=== PATIENT | male | born 1995 | race African-American/Black ===

== ENCOUNTER 2016-06-09 09:51 | Emergency (ER) | payer SELFPAY ==
[2016-06-09] MEDS ORDERED: TETRACAINE HCL 0.5% OPH SOLN 2 ML OS ONE (10:01)
--- NOTE | 2016-06-09 10:01 | ER Document Report ---
ED Medical Screen (RME) - General Stated Complaint: EYE PAIN Time seen by provider: 09:59 Mode of Arrival: Ambulatory Information source: Patient Notes: 20 yo male presents to ed for left eye pain with bluurry vison. for 2 days - HPI Onset: Other - 2days Onset/Duration: Gradual Quality of pain: Burning Severity: Severe Pain Level: 5 Associated Symptoms: Other - eye pain Exacerbated by: Denies Relieved by: Denies Similar symptoms previously: No Recently seen / treated by doctor: No - Related Data Smoking: Cigarettes Frequency of alcohol use: None Drug Abuse: None Allergies/Adverse Reactions: No Known Allergies Allergy (Unverified 06/09/16 09:57)
--- NOTE | 2016-06-09 11:25 | ER Document Report ---
ED General - General Chief Complaint: Eye Pain Stated Complaint: EYE PAIN Time seen by provider: 10:50 Mode of Arrival: Ambulatory Information source: Patient Notes: 20-year-old male woke up 2 days ago with redness to his left eye and yellow drainage. He also reports that he has intermittent blurry vision until he blinks and clears inside and it seems back to normal. He reports no problems with the right eye. He reports a prior history of symptoms like this. He denies any kind of work might produce foreign bodies has no foreign body sensation in his eye and states he doesn't wear glasses or contact lenses Physical Exam: General: Alert, appears well. HEENT: Normocephalic. Atraumatic. PERRLA. Extraocular movements intact. Discs sharp with no papilledema. Conjunctival injection noted diffusely to the left eye with soft tissue swelling to the upper and lower lids and yellowish drainage. Ocular pressure 19. No foreign body seen with lid eversion. No corneal abrasion identified with fluorescein staining. Oropharynx clear. Neck: Supple. Non-tender. Respiratory: No respiratory distress. Clear and equal breath sounds bilaterally. Cardiovascular: Regular rate and rhythm. Abdominal: Normal Inspection. Soft, non-tender. No distension. Normal Bowel Sounds. Back: Non-tender. No deformity or step off. Extremities: No gross deformities moves all extremities well Neurological: Speech clear mentation normal Psychological: Normal affect. Normal Mood. Skin: Warm. Dry. Normal color. TRAVEL OUTSIDE OF THE [place] IN LAST 30 DAYS: No - Related Data Allergies/Adverse Reactions: No Known Allergies Allergy (Unverified 06/09/16 09:57) Past Medical History - General Information source: Patient - Social History Smoking Status: Current Every Day Smoker Chew tobacco use (# tins/day): No Frequency of alcohol use: None Drug Abuse: None Family History: DM, Hypertension Patient has suicidal ideation: No Patient has homicidal ideation: No Review of Systems - Review of Systems Constitutional: denies: Chills, Fever EENT: See HPI Cardiovascular: denies: Chest pain Respiratory: denies: Short of breath Gastrointestinal: denies: Abdominal pain, Nausea, Vomiting Genitourinary: denies: Burning, Dysuria Musculoskeletal: denies: Back pain Hematologic/Lymphatic: denies: Swollen glands Neurological/Psychological: denies: Weakness, Numbness Physical Exam - Vital signs Vitals: Temp Pulse Resp BP Pulse Ox 98.1 F 87 20 142/87 H 96 06/09/16 09:57 06/09/16 09:57 06/09/16 09:57 06/09/16 09:57 06/09/16 09:57 - HEENT Visual acuity- Right eye: 20/40 Visual acuity- Left eye: 20/50 Visual acuity- Both eyes: 20/50 Corrective lenses worn: No Course - Re-evaluation Re-evalutation: 06/09/16 11:21 Examination consistent with conjunctivitis. Patient replacement antibiotic drops with ophthalmology follow-up as outpatient - Vital Signs Vital signs: Temp Pulse Resp BP Pulse Ox 98.1 F 87 20 142/87 H 96 06/09/16 09:57 06/09/16 09:57 06/09/16 09:57 06/09/16 09:57 06/09/16 09:57 Discharge - Discharge Clinical Impression: Conjunctivitis Qualifiers: Conjunctivitis type: acute Acute conjunctivitis type: unspecified Laterality: left Qualified Code(s): H10.32 - Unspecified acute conjunctivitis, left eye Condition: Stable Disposition: HOME, SELF-CARE Additional Instructions: Conjunctivitis You have an infection in your eye, commonly known as "pink eye." Conjunctivitis causes redness, mild discomfort, itching, and mattering on the eyelids. It is very contagious, so you must be careful to wash your hands after touching your face so you don't pass the infection on to others. Conjunctivitis is caused by both viruses and bacteria. It usually responds quickly to treatment with antibiotic drops. These should be placed in the eye as prescribed (usually every three to four hours while you're awake). If you wear contact lenses, don't put them in your eyes until the infection is cleared and you are no longer using the drops (unless your doctor advises you otherwise). Should you develop increasing eye pain, severe swelling, decreased vision, or fail to improve as expected, please return for re-examination. Prescriptions: Tobramycin Sulf/Dexamethasone [Tobradex Eye Drops] 1 drop LFT_EYE QID #5 ml Referrals: IVANA GALLAGHER MD [ACTIVE STAFF] - 06/19/16 (follow up conjuctivitis)
[2016-06-09 11:41] VITALS: BP 139/79
== END 2016-06-09 11:45 | disposition home or self-care (01) ==
LOC: ER 09:51
DX: H10.32 Unspecified acute conjunctivitis, left eye (principal); F17.200 Nicotine dependence, unspecified, uncomplicated
CPT/HCPCS: 99283

== ENCOUNTER 2018-10-02 03:09 | Emergency (ER) | payer SELFPAY ==
[2018-10-02] MEDS ORDERED: PROMETHAZINE HCL INJ 25 MG/1 ML VIAL IV ONE (03:53)
[2018-10-02] MEDS ORDERED: MORPHINE SULFATE 10 MG/ML INJ IV ONE (03:54)
[2018-10-02] MEDS ORDERED: PROMETHAZINE HCL INJ 25 MG/1 ML VIAL ONE (03:57)
[2018-10-02] MEDS ORDERED: MORPHINE SULFATE 10 MG/ML INJ ONE (03:57)
--- NOTE | 2018-10-02 06:15 | RADIOLOGY REPORT (SQ) ---
EXAM DESCRIPTION: CT ABDOMEN WITHOUT IV CONTRAST COMPLETED DATE/TME: 10/02/2018 03:58 CLINICAL HISTORY: RLQ pain COMPARISON: None Available. TECHNIQUE: CT of the abdomen and pelvis without IV contrast. Evaluation of the solid organs and vasculature is suboptimal due to lack of IV contrast. DLP: 969.29 mGy-cm FINDINGS: Lung Bases: The visualized lung bases are clear. Bones: No destructive bone lesions identified. Abdomen: Liver: The liver has normal size and density. Gallbladder: No calcified gallstones. Spleen, Pancreas, and Adrenal Glands: The spleen, pancreas, and adrenal glands are unremarkable. Kidneys: There is a 0.3 cm obstructing calculus in the mid right ureter producing moderate right hydronephrosis. Right perinephric fat No left-sided hydronephrosis. Vasculature: The aorta and IVC have normal caliber and position. Stomach: The stomach and duodenum have normal course. Other: No free intraperitoneal air. No free fluid or lymphadenopathy. Pelvis: Bladder: Urinary bladder is unremarkable. Bowel: No dilated loops of large or small bowel. Mild prominence of the colon wall may be related to under distention. Appendix: Normal appendix. Pelvis: Prostate is not enlarged. IMPRESSION: 1. There is a 0.3 cm obstructing calculus in the mid right ureter producing moderate right hydronephrosis. This exam was performed according to our departmental dose-optimization program, which includes automated exposure control, adjustment of the mA and/or kV according to patient size and/or use of iterative reconstruction technique.
[2018-10-02] MEDS ORDERED: NORMAL SALINE 1000 ML 1,000 ML IV ONE (06:17)
[2018-10-02 06:18] LABS: ALANINE AMINOTRANSFERASE 32 U/L (21-72); ALBUMIN 3.9 g/dL (3.5-5.0); ALKALINE PHOSPHATASE 85 U/L (38-126); ANION GAP 12 (5-19); ASPARTATE AMINO TRANSFERASE 20 U/L (17-59); BILIRUBIN,DIRECT 0.2 mg/dL (0.0-0.4); BILIRUBIN,TOTAL 0.2 mg/dL (0.2-1.3); BLOOD UREA NITROGEN 14 mg/dL (7-20); CALCIUM 9.6 mg/dL (8.4-10.2); CARBON DIOXIDE 24 mmol/L (22-30); CHLORIDE 106 mmol/L (98-107); GLUCOSE 144 mg/dL (75-110); LIPASE 56.3 U/L (23-300); POTASSIUM 3.8 mmol/L (3.6-5.0); SODIUM 141.5 mmol/L (137-145); TOTAL PROTEIN 6.8 g/dL (6.3-8.2)
[2018-10-02] MEDS ORDERED: KETOROLAC TROMETHAMINE INJ/PF 30 MG/1 ML SDV IV ONE (06:19)
[2018-10-02] MEDS ORDERED: KETOROLAC TROMETHAMINE INJ/PF 30 MG/1 ML SDV ONE (06:39)
--- NOTE | 2018-10-02 07:00 | ER Document Report ---
ED General - General Chief Complaint: Abdominal Pain Stated Complaint: RLQ PAIN Time Seen by Provider: 10/02/18 03:43 Primary Care Provider: [facility] [Provider Group] - Follow up tomorrow Notes: Patient is a 22-year-old male who presents emergency department with a chief complaint of right lower quadrant abdominal pain. He states that it is a sharp pain in that area. It will come up at 1:00 this morning from his sleep. He has had a few bouts of vomiting since his pain started. Patient states that it feels better when he presses down on the area. He has not had this before. Denies any dysuria, chest pain, shortness of breath. He denies any past medical history. He does not take any medications, nor did he take any medications at home. He was brought in by ambulance and they gave him 100 g of fentanyl and 4 mg of Zofran in route. States that he still has pain to the area. TRAVEL OUTSIDE OF THE [place] IN LAST 30 DAYS: No - Related Data Allergies/Adverse Reactions: iodine Allergy (Verified 10/02/18 03:55) Past Medical History - Social History Smoking Status: Unknown if Ever Smoked Family History: DM, Hypertension Review of Systems - Review of Systems Notes: REVIEW OF SYSTEMS: CONSTITUTIONAL : Denies recent illness. Denies recent unintentional weight loss. Denies fever, chills, or sweats. EENT: Denies eye, ear, throat, or mouth pain, discharge, or symptoms. Denies nasal or sinus congestion. CARDIOVASCULAR: Denies chest pain. RESPIRATORY: Denies shortness of breath, cough, congestion, difficulty breathing, or wheezing. GASTROINTESTINAL: See HPI GENITOURINARY: Denies difficulty urinating, burning, blood in urine, urgency or frequency. MUSCULOSKELETAL: Denies neck and back pain. Denies joint pain or swelling. SKIN: Denies rash, itchiness, or lesions HEMATOLOGIC : Denies easy bruising or bleeding. LYMPHATIC: Denies swollen, painful, enlarged glands. NEUROLOGICAL: Denies no numbness or tingling denies weakness. Denies headache. Denies altered mental status. Denies alteration in speech. PSYCHIATRIC: Denies stress, anxiety, alteration in sleep patterns, or depression. All other systems reviewed and negative. Physical Exam - Vital signs Vitals: Temp Pulse Resp BP Pulse Ox 97.5 F 68 20 166/85 H 94 05/01/19 03:30 10/02/18 03:30 10/02/18 03:30 10/02/18 03:30 10/02/18 03:30 - Notes Notes: PHYSICAL EXAMINATION: GENERAL: Appears well, healthy, well-nourished, no acute distress. HEAD: Normocephalic, atraumatic. EYES: PERRL, conjunctiva normal, all extraocular movements intact, sclera nonicteric ENT: Moist mucous membranes. NECK: Supple, no noticeable swelling, redness, rash. Normal range of motion. LUNGS: Equal breath sounds bilaterally and clear to auscultation. No wheezes rales or rhonchi. CARDIOVASCULAR: S1-S2, regular rate, regular rhythm. Radial pulses 2+, normal. ABDOMEN: Normoactive bowel sounds. Soft, very tender right lower quadrant. Rebound tenderness noted. No masses palpated. EXTREMITIES: Normal strength and range of motion, no pitting or edema. No cyanosis. NEUROLOGICAL: Moves all extremities upon command. Strength 5/5 in all extre mities. PSYCH: Normal mood, normal affect. SKIN: Warm, dry. No rash, lesions, ulcerations noted. Normal skin turgor. Course - Re-evaluation Re-evalutation: 10/02/18 04:00 Due to the patient having right lower quadrant abdominal pain, I am suspicious of appendicitis. He will be sent for a CT of the abdomen with oral barium con trast to rule out any appendicitis. Labs to be sent. He will be given a milligrams of morphine and Phenergan for his nausea. Differential diagnosis includes appendicitis, renal calculi, urinary tract infection, bowel obstruction, diverticulitis, diverticulosis, and other abdominal etiology. 10/02/18 06:[address] of the abdomen shows an obstructive renal stone with hydronephrosis on the right. This is consistent with his exam. No appendicitis noted. He will be given Toradol, because his pain is not relieved at this time. 10/02/18 07:20 Patient states that his pain is much better after receiving the Toradol and IV fluids. Patient's urinalysis is back and there is no leukocytes noted in his urine, ruling out an infected kidney stone. He will be started on Flomax and he will follow-up with urology. I will also give him some Toradol for home. Verbal discharge instructions were given to the patient. They verbalized understanding. They are stable for discharge. - Vital Signs Vital signs: Temp Pulse Resp BP Pulse Ox 98.2 F 59 L 15 144/91 H 100 10/02/18 08:10 10/02/18 08:10 10/02/18 08:10 10/02/18 08:10 10/02/18 07:12 - Laboratory Result Diagrams: 10/02/18 04:05 10/02/18 04:05 Laboratory results interpreted by me: 10/02/18 10/02/18 10/02/18 04:05 04:05 06:45 WBC 12.8 H RDW 14.5 H Absolute Neutrophils 9.6 H Glucose 144 H Urine Protein 30 H Urine Blood LARGE H Urine Urobilinogen 2.0 H Discharge - Discharge Clinical Impression: Renal calculi Hydronephrosis Qualifiers: Hydronephrosis type: with ureteral calculous obstruction Qualified Code(s): N13.2 - Hydronephrosis with renal and ureteral calculous obstruction Disposition: HOME, SELF-CARE Additional Instructions: Your symptoms should improve over the course of the next one week. If you continue to have pain for greater than one week or your pain is not controlled with the pain medications that you have been sent home with you need to return to the emergency department. Please also return if you develop fever, persistent vomiting, or any other symptoms that are concerning to you. Please take the Toradol prescribed to you. If you run out of the Toradol, you can take ibuprofen 600 mg every 6 hours as needed for your pain. You are also been sent home with a medication called Flomax to help pass the stone. You've been given Zofran to assist with nausea. Please follow-up with urology in the next 2-3 days. Prescriptions: Ketorolac Tromethamine [Toradol 10 mg Tablet] 10 mg PO Q6HP PRN #20 tablet PRN Reason: Tamsulosin HCl [Flomax 0.4 mg Cap.sr] 0.4 mg PO DAILY #7 cap.sr.24h Forms: Return to Work Referrals: [facility] [Provider Group] - Follow up tomorrow
[2018-10-02] MEDS ORDERED: TAMSULOSIN HCL 0.4 MG CAP.SR.24H PO ONE (07:01)
[2018-10-02 07:07] LABS: AMORPHOUS SEDIMENT,URINE TRACE /HPF; APPEARANCE,URINE CLOUDY; BILIRUBIN,URINE NEGATIVE (NEGATIVE); COLOR,URINE YELLOW; GLUCOSE, URINE NEGATIVE (NEGATIVE); KETONES,URINE NEGATIVE (NEGATIVE); LEUKOCYTE ESTERASE,URINE NEGATIVE (NEGATIVE); NITRITE,URINE NEGATIVE (NEGATIVE); PROTEIN,URINE 30 mg/dL (NEGATIVE); URINE SPECIFIC GRAVITY 1.027
[2018-10-02 08:10] LABS: ABSOLUTE BASOPHILS # (AUTO) 0.1 10^3/uL (0.0-0.2); ABSOLUTE EOSINOPHILS # (AUTO) 0.1 10^3/uL (0.0-0.6); ABSOLUTE LYMPHOCYTES (AUTO) 1.7 10^3/uL (0.5-4.7); ABSOLUTE MONOCYTES (AUTO) 1.3 10^3/uL (0.1-1.4); ABSOLUTE NEUT (AUTO) 9.6 10^3/uL (1.7-8.2); BASOPHILS % (AUTO) 0.8 % (0-2); EOSINOPHILS % (AUTO) 0.9 % (0-6); HEMATOCRIT 41.2 % (37.9-51.0); HEMOGLOBIN 13.7 g/dL (13.5-17.0); MEAN CORPUSCULAR HGB CONC 33.2 g/dL (32.0-36.0); MEAN CORPUSCULAR VOLUME 87 fl (80-97); PLATELET COUNT 275 10^3/uL (150-450); RED BLOOD COUNT 4.72 10^6/uL (4.35-5.55); RED CELL DISTRIBUTION WIDTH 14.5 % (11.5-14.0); SEGMENTED NEUTROPHILS % (AUTO) 75.3 % (42-78); TOTAL CELLS COUNTED % (AUTO) 100 %; WHITE BLOOD COUNT 12.8 10^3/uL (4.0-10.5)
[2018-10-02 08:24] VITALS: BP 144/91
== END 2018-10-02 08:10 | disposition home or self-care (01) ==
LOC: ER 03:09
DX: N13.2 Hydronephrosis with renal and ureteral calculous obstruction (principal); R10.9 Unspecified abdominal pain; R10.31 Right lower quadrant pain
CPT/HCPCS: 99284; 96361; 96374; 96375; 36415; 83690; 85025; 80053; 81001; 74150; J1885; J2270; J2550; J7030

== ENCOUNTER 2018-10-16 14:35 | Emergency (ER) | payer SELFPAY ==
[2018-10-16 14:52] VITALS: BP 138/86
--- NOTE | 2018-10-16 15:42 | ER Document Report ---
ED GI/ - General Chief Complaint: Flank Pain Stated Complaint: FLANK PAIN Time Seen by Provider: 10/16/18 15:29 Primary Care Provider: [facility] [Provider Group] - Follow up as needed Mode of Arrival: Ambulatory Information source: Patient Notes: 22-year-old male presents to ED for complaint of hematuria from 06 02- 30 this morning. He states he has not had any pain since since but he has not urinated since then. He states that 2 weeks ago he was diagnosed with a kidney stone and has had pain off and on until now. 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 TRAVEL OUTSIDE OF THE [place] IN LAST 30 DAYS: No - HPI Patient complains to provider of: Flank pain, Hematuria Onset: Other - Diagnosed kidney stone 2 weeks ago pain severe from 06 02- 30 this morning Timing/Duration: Gone Quality of pain: Sharp, Stabbing Severity at maximum: Severe Severity in ED: None Location: Right flank Associated symptoms: Hematuria Exacerbated by: Denies Relieved by: Denies Similar symptoms previously: Yes Recently seen / treated by doctor: Yes - Related Data Allergies/Adverse Reactions: iodine Allergy (Verified 10/02/18 03:55) Past Medical History - General Information source: Patient - Social History Smoking Status: Current Every Day Smoker Cigarette use (# per day): Yes - 3 to 4 cigarettes a day Smoking Education Provided: Yes - 4 minutes Frequency of alcohol use: None Drug Abuse: None Occupation: Traffic control Family History: DM, Hypertension Patient has suicidal ideation: No Patient has homicidal ideation: No - Past Medical History Cardiac Medical History: Reports: None Pulmonary Medical History: Reports: None EENT Medical History: Reports: None Neurological Medical History: Reports: None Endocrine Medical History: Reports: None Renal/ Medical History: Reports: Hx Kidney Stones Malignancy Medical History: Reports None GI Medical History: Reports: None Musculoskeletal Medical History: Reports None Skin Medical History: Reports None Psychiatric Medical History: Reports: None Traumatic Medical History: Reports: None Infectious Medical History: Reports: None Surgical Hx: Negative Past Surgical History: Reports: None Review of Systems - Review of Systems Constitutional: No symptoms reported EENT: No symptoms reported Cardiovascular: No symptoms reported Respiratory: No symptoms reported Gastrointestinal: No symptoms reported Genitourinary: Flank pain, Hematuria Male Genitourinary: No symptoms reported Musculoskeletal: No symptoms reported Skin: No symptoms reported Hematologic/Lymphatic: No symptoms reported Neurological/Psychological: No symptoms reported -: Yes All other systems reviewed and negative Physical Exam - Vital signs Vitals: Temp Pulse Resp BP Pulse Ox 98.7 F 79 20 138/86 H 97 10/16/18 14:50 10/16/18 14:50 10/16/18 14:50 10/16/18 14:50 10/16/18 14:50 Interpretation: Normal - General General appearance: Appears well, Alert - HEENT Head: Normocephalic, Atraumatic Eyes: Normal Pupils: PERRL - Respiratory Respiratory status: No respiratory distress Chest status: Nontender Breath sounds: Normal Chest palpation: Normal - Cardiovascular Rhythm: Regular Heart sounds: Normal auscultation Murmur: No - Abdominal Inspection: Normal Distension: No distension Bowel sounds: Normal Tenderness: Nontender Organomegaly: No organomegaly - Back Back: Normal, Nontender - Extremities General upper extremity: Normal inspection, Nontender, Normal color, Normal ROM, Normal temperature General lower extremity: Normal inspection, Nontender, Normal color, Normal ROM, Normal temperature, Normal weight bearing. No: Bethany's sign - Neurological Neuro grossly intact: Yes Cognition: Normal Orientation: AAOx4 Hallett Coma Scale Eye Opening: Spontaneous Hallett Coma Scale Verbal: Oriented Starr Coma Scale Motor: Obeys Commands Starr Coma Scale Total: 15 Speech: Normal Motor strength normal: LUE, RUE, LLE, RLE Sensory: Normal - Psychological Associated symptoms: Normal affect, Normal mood - Skin Skin Temperature: Warm Skin Moisture: Dry Skin Color: Normal Course - Vital Signs Vital signs: Temp Pulse Resp BP Pulse Ox 98.7 F 79 20 138/86 H 97 10/16/18 14:50 10/16/18 14:50 10/16/18 14:50 10/16/18 14:50 10/16/18 14:50 - Laboratory Laboratory results interpreted by me: 10/16/18 16:00 Urine Blood LARGE H - Diagnostic Test Radiology reviewed: Image reviewed, Reports reviewed Discharge - Discharge Clinical Impression: passed kidney stone Hematuria Qualifiers: Hematuria type: unspecified type Qualified Code(s): R31.9 - Hematuria, unspecified Condition: Stable Disposition: HOME, SELF-CARE Instructions: Family Physicians / Practices Additional Instructions: Kidney Stone You are passing or have passed a kidney stone. These stones are usually due to increased calcium or uric acid concentrations in your urine. Stones within the kidney itself are not painful. The pain occurs as the stone leaves the kidney to pass down the long tube, called the ureter, leading to the bladder. If the stone is small, it will usually pass by itself. Most patients can pass the stone at home. You will usually receive medications for pain, nausea or vomiting, and sometimes a medication to assist in passing the kidney stone. However, if the pain is very severe or if vomiting prevents you from taking oral pain medications, you may need to return for further treatment. Drink three or four quarts of fluids per day. You will be given pain medication (if needed) and urine strainers. Strain all your urine to see if the stone passes. If your doctor has asked you to bring the stone in for analysis, return with the stone once it has passed. Return if pain or vomiting become severe, if you develop a high fever, if you are unable to pass your urine, or if other unusual symptoms occur. Hematuria Hematuria, or blood in your urine, can be caused by minor medical problems, such as a bladder infection, or by more serious medical conditions, such as kidney stones or even tumors of the bladder or kidney. If the cause of the hematuria is known (such as a bladder infection) and can be treated, it may not need further evaluation. If the cause is not known, it will usually require further evaluation by a specialist, such as a urologist. In particular, unexplained hematuria in the older patient must be evaluated to rule out a serious condition, such as a bladder or kidney tumor. If the hematuria worsens or you are passing clots and then are unable to urinate, you should be re-evaluated. A catheter may need to be placed in the bladder to permit passage of urine. If you develop high fever, severe pain, or other new or worsening symptoms, return to the Emergency Department for re- evaluation. Your hematuria is probably from passing a kidney stone. As long as his he maturia clears up you are going to be okay. You just need to follow-up in 3 or 4 days to have your urine rechecked to be sure that the blood in the urine is clearing up. Please drink at least 3 to 4 quarts of water 24-hour timeframe. Please do not hold urine but urinate frequently to ensure that the urine is cleared up. FOLLOW-UP CARE: If you have been referred to a physician for follow-up care, call the physicians office for an appointment as you were instructed or within the next two days. If you experience worsening or a significant change in your symptoms, notify the physician immediately or return to the Emergency Department at any time for re-evaluation. Forms: Elevated Blood Pressure, Smoking Cessation Education, Return to Work Referrals: [facility] [Provider Group] - Follow up as needed
[2018-10-16 16:25] LABS: APPEARANCE,URINE SLIGHTLY-CLOUDY; BILIRUBIN,URINE NEGATIVE (NEGATIVE); COLOR,URINE YELLOW; GLUCOSE, URINE NEGATIVE (NEGATIVE); KETONES,URINE NEGATIVE (NEGATIVE); LEUKOCYTE ESTERASE,URINE NEGATIVE (NEGATIVE); NITRITE,URINE NEGATIVE (NEGATIVE); PROTEIN,URINE NEGATIVE (NEGATIVE); UROBILINOGEN,URINE NEGATIVE mg/dL (<2.0)
--- NOTE | 2018-10-16 16:58 | RADIOLOGY REPORT (SQ) ---
EXAM DESCRIPTION: U/S RETROPERITON (RENAL/AORTA) COMPLETED DATE/TIME: 10/16/2018 4:39 pm REASON FOR STUDY: recent ureteral stone hematuria COMPARISON: CT scan 10/02/2018 TECHNIQUE: Dynamic and static grayscale images acquired of the kidneys and bladder and recorded on P ACS. Additional selected color Doppler and spectral images recorded. LIMITATIONS: None. FINDINGS: RIGHT KIDNEY: Normal size. Normal echogenicity. No solid or suspicious masses. No hydronep hrosis. No calcifications. LEFT KIDNEY: Normal size. Normal echogenicity. No solid or suspicious masses. No hydronephrosis. No calcifications. BLADDER: No masses. OTHER FINDINGS: No other significant finding. IMPRESSION: NORMAL RENAL AND BLADDER ULTRASOUND. Resolution of the right hydronephrosis. TECHNICAL DOCUMENTATION: JOB ID: [id number] [employer]- All Rights Reserved Reading location - IP/workstation name: [email or web address]
== END 2018-10-16 17:14 | disposition home or self-care (01) ==
LOC: ER 14:35
DX: R31.9 Hematuria, unspecified (principal); R10.9 Unspecified abdominal pain; F17.210 Nicotine dependence, cigarettes, uncomplicated
CPT/HCPCS: 76770; 81001; 87086; 99284; 99406